=== PATIENT | female | born 1970 | race Caucasian/White ===

== ENCOUNTER 2019-02-16 10:34 | Emergency (ER) | payer MEDICARE, MEDICAID, SELFPAY ==
[2019-02-16 10:42] VITALS: BP 122/84; PULSE 73; RESP 16; TEMP 36.3; O2SAT 98; BMI 33.0
[2019-02-16 10:47] VITALS: TEMP 36.3
--- NOTE | 2019-02-16 11:09 | RAD_ITS ---
STUDY: X-RAY - RIGHT HAND REASON FOR EXAM: Female, 48 years old. Wound, infection, swelling TECHNIQUE: 3 view(s) of the hand. COMPARISON: None. FINDINGS: Normal radiocarpal articulation. Normal distal radioulnar joint. Normal visualized carpal bones. Normal carpal articulations Normal carpometacarpal articulation of the thumb. Normal second through fifth carpometacarpal joints. Normal metacarpi. Normal metacarpophalangeal joint of the thumb. Normal interphalangeal joint of the thumb. Normal proximal and distal phalanges of the thumb. Normal metacarpophalangeal joints of the second through fifth fingers. Normal proximal and distal interphalangeal joints of the second through fifth fingers. Normal phalanges of the second through fifth fingers. The soft tissue structures are unremarkable. RAD/Hand Min 3 Views IMPRESSION: Normal x-ray examination of the hand. No radiographic evidence of osteomyelitis Electronically Signed: Maurice Liu MD at 14:02 EDT Tel , Service support ,
--- NOTE | 2019-02-16 11:45 | ED.RN ---
WENT IN TO START IV AND ATB. PT STATES I DON'T WANT AN IV AND I'M NOT BEING POKED 20 FUCKING TIMES FOR AN IV. ADVISED PT THAT THIS IS THE MOST EFFECTIVE WAY FOR ATB TO GET INTO SYSTEM AND PT HAS ADVANCED INFECTION IN HAND. PT STATES I DON'T FUCKING CARE, YOU AREN'T POKING ME 20 TIMES. ASKED THE PT IF I COULD AT LEAST LOOK FOR AN IV AND PT STATES NO I'M NOT RISKING GETTING POKED 20 FUCKING TIMES. MADE AWARE PT REFUSED IV ATB.
[2019-02-16 11:47] VITALS: BP 124/76; PULSE 69; RESP 18; TEMP 36.4; O2SAT 99
--- NOTE | 2019-02-16 11:55 | ED.DCSUM_ITS ---
History of Present Illness Chief Complaint: Wound Onset: Days - 3 Current Severity: Moderate Maximum Severity: Moderate Narrative: Patient sustained a puncture wound on the right volar fold of the MP joint a few days ago. She noticed some swelling and she squeezed pus out of there for the past 2 days. Today she is presenting because she cannot squeeze the pus out of there anymore. She has pain. She denies any fever chills or lymphangitic streaking. She works at the [employer], she tells me to hurry up since she has to be back at work at 3. Past Medical History - Allergies and Home Meds Allergies/Adverse Reactions: Allergies codeine Allergy (Verified 02/16/19 10:42) Unknown gabapentin Allergy (Verified 02/16/19 10:42) Unknown Penicillins [PCN] Allergy (Verified 02/16/19 10:42) Swelling Sulfa (Sulfonamide Antibiotics) Allergy (Verified 02/16/19 10:42) Anaphylaxis aspirin [ASA] Adverse Reaction (Verified 02/16/19 10:42) Nausea/Vom/Diarrhea dicyclomine [From Bentyl] Adverse Reaction (Verified 02/16/19 10:42) Nausea/Vom/Diarrhea doxycycline Adverse Reaction (Verified 02/16/19 10:42) Rash erythromycin base Adverse Reaction (Verified 02/16/19 10:42) Swelling iodine Adverse Reaction (Verified 02/16/19 10:42) Rash levofloxacin Adverse Reaction (Verified 02/16/19 10:42) Unknown Macrolide Antibiotics Adverse Reaction (Verified 02/16/19 10:42) Rash mometasone furoate Adverse Reaction (Verified 02/16/19 10:42) Unknown moxifloxacin Adverse Reaction (Verified 02/16/19 10:42) Unknown mupirocin Adverse Reaction (Verified 02/16/19 10:42) Rash Nitrofuran Analogues Adverse Reaction (Verified 02/16/19 10:42) Unknown ranitidine Adverse Reaction (Verified 02/16/19 10:42) Unknown ropinirole Adverse Reaction (Verified 02/16/19 10:42) Unknown sulfamethoxazole [From Bactrim] Adverse Reaction (Verified 02/16/19 10:42) Nausea/Vom/Diarrhea tositumomab iodine-131 Adverse Reaction (Verified 02/16/19 10:42) Unknown trimethoprim [From Bactrim] Adverse Reaction (Verified 02/16/19 10:42) Nausea/Vom/Diarrhea vancomycin Adverse Reaction (Verified 02/16/19 10:42) Unknown LODINE Adverse Reaction (Uncoded 02/16/19 10:42) Unknown Primary Care Physician: Care Physician,No Primary [Primary Care Provider] - Past Medical History: - - Type 2 diabetes Smoking Status: Former smoker Review of Systems General: Denies: Fever Cardiovascular: Denies: Chest pain Respiratory: Denies: Dyspnea Gastrointestinal: Denies: Nausea Skin: Reports: Wounds Neurological: Denies: Weakness, Parasthesia Hematologic: Denies: Easy bleeding Physical Exam Vital Signs/Narrative: Vital Signs Temp Pulse Resp BP Pulse Ox 02/16/19 11:47 97.5 F L 69 18 124/76 H 99 02/16/19 10:47 97.3 F L 02/16/19 10:42 97.3 F L 73 16 122/84 H 98 General: Well nourished, Well developed ENT: Moist mucous membranes Cardiovascular: Regular rate Respiratory: No distress Extremities: - - There is a small 3 to 4 mm indurated lesion on the fold of the skin at the MP joint of her right thumb on the volar lip region. There is no tenderness over the flexor tendon region distally, patient can extend digit quite well. There is no lymphangitic streaking. The digit is not swollen. Diagnostic/Tx/Re-eval - Medical Decision Making I used 1% lidocaine and drained the wound with simple hemostats by uncapping the abscess, I then expectorated all the pus which was scant. There is no evidence of flexor tenosynovitis. Because its in the hand the thumb I want to be quite cautious. I wanted to put an IV and placed the patient on IV antibiotics. She is refusing this. I eventually got her to accept an IV but after 1 poke she said she does not want an IV anymore. She wants to be discharged. I will give her p.o. clindamycin. I discussed with orthopedic surgery and patient has an appointment tomorrow morning at 8 AM. I am quite worried because she is right-handed and it is her thumb. I do not want to be reckless. Because of this I warned her multiple times that she needs to follow-up tomorrow morning and if anything worsen she needs to return. She understands this and she voiced this back to me. The nurse also voiced the same concerns to her. I told her she is to fill her antibiotics at the pharmacy right away and continue to take them if she is unable to come back right away. ED Disposition - Plan for ED Patient: Disposition: Home or Assisted Living Diagnosis: Hand abscess Instructions: ABSCESS, Incision and Drainage Prescriptions: Clindamycin [Cleocin] 300 mg PO 4X/DAY #80 cap Prescription Printed Referrals: Jacqui Balderrama DO [STAFF PHYSICIAN] - 02/17/19 8:00 am
--- NOTE | 2019-02-16 12:01 | ED.RN ---
ATTEMPTED IV ON PT, IV UNSUCCESSFUL, PT STARTED CRYING AND STATED THAT'S IT I AM DONE, NO MORE. I KNOW WHAT THE DR SAID AND I DON'T CARE WHAT HE SAYS I AM NOT BEING POKED AGAIN.
[2019-02-16 12:02] VITALS: BP 124/76; PULSE 69; RESP 18; TEMP 36.4; O2SAT 99
[2019-02-16] MEDS: Clindamycin HCl 150 MG Capsule 450 MG PO (12:29)
== END 2019-02-16 12:32 | disposition home or self-care (01) ==
PROVIDERS: Emergency Provider Emergency Medicine
DX: L02.511 Cutaneous abscess of right hand (principal); E11.9 Type 2 diabetes mellitus without complications; Z87.891 Personal history of nicotine dependence; Z88.0 Allergy status to penicillin; Z88.1 Allergy status to other antibiotic agents; Z88.2 Allergy status to sulfonamides; Z88.6 Allergy status to analgesic agent; Z88.8 Allergy status to other drugs, medicaments and biological substances
CPT/HCPCS: 73130; 99283; J7030